=== PATIENT | female | born 1945 | race Caucasian/White ===

== ENCOUNTER 2016-10-31 16:19 | Emergency (ER) | payer OTHER ==
[~2016-10-31] VITALS: Ht 162.6 cm; Wt 127.0 kg
[~2016-10-31 16:19] MED LIST: ACT30 PO; ASPIR LOW81 MG PO; ATENOLOL50 MG PO; GABAPENTIN100 M2 PO; GLYBURIDE5 MG PO; JANUVIA100 M1 PO; KEPPRA500 MG PO; LASIX40 MG PO; NATURAL IRON65 MG PO; NORCO1 TA2 PO; POTASSIUM CHLO20 ME1 PO; TEKTURNA300 M1 PO; VALSARTAN AND H1 TA3 PO; ZANTAC 150150 MG PO; ZETIA10 M1 PO
[2016-10-31 18:30] VITALS: BP 171/66
== END 2016-10-31 18:30 | disposition home or self-care (01) ==
LOC: ED 16:19
DX: S09.90XA Unspecified injury of head, initial encounter (principal); E11.9 Type 2 diabetes mellitus without complications; R42 Dizziness and giddiness; I10 Essential (primary) hypertension; X58.XXXA Exposure to other specified factors, initial encounter; Y93.89 Activity, other specified; Y92.89 Other specified places as the place of occurrence of the external cause; Y99.8 Other external cause status

== ENCOUNTER 2017-01-29 12:03 | Inpatient (IN) | payer OTHER, BC ==
[~2017-01-29] VITALS: Ht 162.6 cm; Wt 109.0 kg
--- NOTE | 2017-01-29 12:05 | NUR ---
PT BIB [facility] FOR SEZIURE. PER EMS; PT WAS WALKING IN THE HALLWAY OF HER HOME WHEN SHE FELL WHICH WAS CAUSED BY A SEIZURE. PT COMPLAINS OF RIGHT SHOULDER AND RIGHT ANKLE PAIN DUE TO THE FALL. WHILE IN TRANSPORT MEDICS REPORT PATIENT HAD 3 SEIZURES IN WHICH THEY GAVE HER A TOTAL OF 7.5 MG OF VERSED. PT APPEARS TO BE POSTICTAL. RESPIRATIONS EVEN AND UNLABORED. NAD NOTED. DR. BABIN WAS AT BEDSIDE FOR MSE.
--- NOTE | 2017-01-29 12:22 | NUR ---
[facility]
[2017-01-29 12:30] LABS: BASOPHIL % 0.5 % (0-2); PLATELET COUNT 166 x10^3mcL (130-400); RED CELL DISTRIBUTION WIDTH 14.1 % (11.5-14.5)
[2017-01-29 12:42] LABS: ALBUMIN 3.2 g/dL (3.4-5.0); ALKALINE PHOSPHATASE 67 U/L (46-116); ALT/SGPT 18 U/L (14-59); AST/SGOT 18 U/L (15-37); BILIRUBIN TOTAL 0.3 mg/dL (0.20-1.00); CALCIUM 8.4 mg/dL (8.5-10.1); CARBON DIOXIDE 25.8 mmol/L (21-32); CHLORIDE SERUM 112 mmol/L (98-107); CREATININE SERUM 2.1 mg/dL (0.6-1.0); GLUCOSE SERUM 75 mg/dL (74-106); POTASSIUM SERUM 3.8 mmol/L (3.5-5.1); SODIUM SERUM 143 mmol/L (136-145); TOTAL PROTEIN, SERUM 6.5 g/dL (6.4-8.2)
[2017-01-29 12:43] LABS: CHOLESTEROL 112 mg/dL (<200)
--- NOTE | 2017-01-29 12:43 | NUR ---
RADIOLOGY AT BEDSIDE FOR PCXR
--- NOTE | 2017-01-29 12:57 | NUR ---
PT ASLEEP RESTING COMFORTABLY. RESPIRATION EVEN AND UNLABORED. NAD NOTED. FAMILY AT BEDSIDE.
[2017-01-29] MEDS ORDERED: KEPPRA1000 M1 PO (13:10)
[2017-01-29 13:11] LABS: AMPHETAMINE QUAL UR NONE DETECTED (NEG <=1000)
[2017-01-29] MEDS ORDERED: VIMPAT100 M1 PO (13:11)
[2017-01-29] MEDS ORDERED: LIPITOR80 MG PO (13:12)
[2017-01-29] MEDS ORDERED: NOR10 PO (13:12)
--- NOTE | 2017-01-29 13:29 | NUR ---
REPORT GIVEN TO AIDE JONES IN [facility] FOR CONTINUITY OF CARE. AWAITING ADMISSION ORDERS AND VERBAL OK FROM DR BABIN TO [facility]
--- NOTE | 2017-01-29 13:42 | NUR ---
VERBAL OK RECEIVED FROM DR BABIN TO MOVE PT. AWAITING ADMIT ORDER. WILL HAVE MT PAGE RESIDENT FOR ORDERS
--- NOTE | 2017-01-29 13:50 | NUR ---
AWAITING ADMIT ORDERS
--- NOTE | 2017-01-29 14:09 | NUR ---
AWAITING ADMIT ORDERS, CASE SPECIALIST DARLENE TEXTED FOR ORDERS
--- NOTE | 2017-01-29 14:30 | NUR ---
RECEIVED PT FROM ED [facility], CAME IN DUE TO S/P FALL AFTER SEIZURES AND HAD RIGHT SHOULDER AND RIGHT ANKLE PAIN. AAOX4. C/O MILD DIZZINESS. NO SEIZURE ACTIVITY NOTED AT THIS TIME. STATED THAT SHE HAS BLURRY VISION X1 WEEK. ABLE TO FOLLOW COMMANDS. NO SOB NOTED, ON 2LPM/NC, O2 KSC=850%. DENIES CHEST PAIN/PRESSURE, SINUS BRADYCARDIA ON THE MONITOR. DENIES ABDOMINAL DISCOMFORT. W/ INDONESIAN 16 DAVIS CATHETER DRAINING W/ YELLOW COLORED URINE. IV SITE PATENT ADN INTACT. PADDED SUDE RAILS UP. HOB ELEVATED AT 40 DEG. CALL LIGHT ON REACH. BED ALARM ON. ENDORSED
[2017-01-29 14:35] VITALS: BP 178/52
[2017-01-29 14:43] LABS: microscopic required? NO
[2017-01-29 14:52] LABS: urine erythrocyte NEGATIVE (NEGATIVE)
[2017-01-29 15:06] LABS: MAGNESIUM 2.2 mg/dL (1.8-2.4); PHOSPHOROUS 4.5 mg/dL (2.5-4.9)
--- NOTE | 2017-01-29 15:07 | NUR ---
RECEIVED REPORT FROM ROBERT BLISS. PT CAME IN S/P FALL AFTER HAVING SEIZURE AND HAD R SHOULDER AND R ANKLE PAIN. PT IS A/O X4, BREATHING EVEN AND UNLABORED,NO SOB OR RESP DISTRESS NOTED. ON 2L N/C. C/O FEELING VERY WEAK AND SLEEPY. NO SEIZURES ACTIVITY AT THIS TIME. PT STATES SHE HAD BLURRY VISION ONE WEEK AGO. SHE IS ABLE TO FOLLOW SIMPLE COMMANDS. DENIES ANY CHEST PAIN OR PRESSURE AND SINUS BRADYCARDIA ON MONITOR. ALSO DENIES ANY ABD DISCOMFORT OR PAIN. [place] 16 DAVIS CATHETER, DRAINING WITH YELLOW COLORED URINE. IS SITE PATENT AND INFUSING AT 150ML/HR NS. NO REDNESS OR SWELLING NOTED AT SITE. PADDED SUDE RAILS UP. HOB ELVATED AT 40 DEG. CALL LIGHT IN REACH. BED IN LOW POSITION BED ALARM ON.
[2017-01-29 15:18] LABS: T3 TOTAL 0.81 ng/mL
[2017-01-29 15:21] LABS: FREE T4 1.05 ng/dL (0.76-1.46); FREE THYROXINE INDEX 2.5 ug/dL (1.4-4.5)
[2017-01-29] MEDS ORDERED: NEU300 PO (15:36)
[2017-01-29] MEDS ORDERED: NEVANAC3 ML OU (15:38)
[2017-01-29] MEDS ORDERED: COSOPT OCUMETER10 ML OU (15:39)
[2017-01-29] MEDS ORDERED: XALATAN2.5 ML OU (15:39)
[2017-01-29] MEDS ORDERED: ALPHAGAN P5 M1 OU (15:42)
--- NOTE | 2017-01-29 16:30 | NUR ---
PT ACCU CHECK 45. RECHECKED 39. MADE DOCTOR TIARA AWARE. GAVE PT ONE CUP OF ORANGE JUICE. IV PUSHED D50 PER PROTOCAL.
--- NOTE | 2017-01-29 16:45 | NUR ---
RECHECKED PT ACCU CHECK 15 MINUTES AFTER 111.
[2017-01-29 16:51] VITALS: BP 158/55
--- NOTE | 2017-01-29 19:00 | NUR ---
PT IS LAYING IN BED WATCHING TV. PT IS A/O X4.NEURO CHECKS DONE Q 4 HRS. BREATHING EVEN AND UNLABORED. TELE 4 NSR. PT DENIES ANY DISCOMFORT AT THIS TIME OR PAIN. DAVIS OUT PUT 1000ML, LIGHT YELLOW. IV TO THE LHAND INFUSING AT 50ML/HR. NO SEIZURE ACTIVITY ON MY SHIFT. WILL ENDORSE PT TO INCOMING NURSE.
--- NOTE | 2017-01-29 20:19 | NUR ---
PT RECEIVED FROM PREVIOUS SHIFT. PT A+OX4. TELE #4. NSR. HR 60. DENIES CP/PRESSURE AT THIS TIME. PULSES MODERATE BILAT. NO EDEMA NOTED. LUNG SOUNDS CTA BILAT. DENIES SOB ON ROOM AIR. BOWEL SOUNDS ACTIVE X4. GENERALIZED WEAKNESS. NON AMBULATORY. SKIN INTACT. MILD REDNESS OF RIGHT SIDE OF TONGUE. IV LFA. PATENT AND INTACT. BED IN LOWEST POSITION. CALL LIGHT WITHIN REACH. WILL CONTINUE TO MONITOR.
[2017-01-29 20:45] VITALS: BP 158/55
[2017-01-29 20:50] VITALS: BP 180/60
--- NOTE | 2017-01-29 21:09 | NUR ---
SPOKE WITH DR ABOUT BP 180/60. TO ORDER VALSARTAN SCHEDULED PM MED. WILL CONTINUE TO MONITOR
--- NOTE | 2017-01-29 22:00 | NUR ---
PT ALERT AND ORIENTED. HAS PERIODS OF CONFUSION. WORDS DO NOT MATCH SITUATION. ABLE TO REORIENT. WEAK FIELD LIABILITY GENERALIST BILAT. PUPILS BRISK REACTION 3MM PUPILS. FACE SYMMETRICAL. NO SLURRED SPEECH. COMPLAINS OF LEG WEAKNESS SINCE SEIZURE ACTIVITY. WILL CONTINUE TO MONITOR
--- NOTE | 2017-01-29 23:01 | NUR ---
IN TO SEE PATIENT. RESTING PEACEFULLY. WILL CONTINUE TO MONITOR.
--- NOTE | 2017-01-30 01:06 | NUR ---
IN TO SEE PATIENT. REPOSITIONED TO HER RIGHT SIDE. PT COMPLAINS OF EXTREME WEAKNESS IN HER LEGS BUT SAID "ITS NORMAL AFTER SHE EXPERIENCES A SEIZURE". BED IN LOWEST POSITION. CALL LIGHT WITHIN REACH. WILL CONTINUE TO MONITOR
--- NOTE | 2017-01-30 02:05 | NUR ---
IN TO SEE PATIENT. ALERT AND ORIENTED. FORGETFUL OF STAFF AND RECENT CONVERSATIONS. STILL ORIENTED TO PERSON, PLACE, TIME, SITUATION. ABLE TO EASILY REORIENT. PERIODS OF SPEECH THAT DOES NOT MATCH SITUATION. PUPILS EQUAL AND BRISK. 3MM. DEVELOPMENT PROFESSIONAL REMAIN WEAK. CONTINUED COMPLAINTS OF WEAKNESS IN EXTREMITIES. NO CHANGES IN FACIAL SYMMETRY OR PERIODS OF SLURRED SPEECH. WILL CONTINUE TO MONITOR
--- NOTE | 2017-01-30 03:32 | NUR ---
PT REMOVED IV FROM [facility]. MULTIPLE ATTEMPTS TO REINSERT. UNSUCCESSFUL. DR. BENAVIDEZ MADE AWARE. ATIVAN WASTED WITNESSED BY STEPHANIA JONES.
--- NOTE | 2017-01-30 03:42 | NUR ---
PT CONFUSED. WORDS DO NOT MATCH SITUATION. PLACED ON 3L NC. WILL CONTINUE TO MONITOR
--- NOTE | 2017-01-30 03:55 | NUR ---
PT REFUSING FURTHER IV INITIATIONS. AWARE.
[2017-01-30 06:02] VITALS: BP 151/47
[2017-01-30 07:09] LABS: TOTAL IRON BINDING CAPACITY 258 ug/dL (250-450)
[2017-01-30 07:16] LABS: IRON 34 ug/dL (50-170)
[2017-01-30 07:20] LABS: BASOPHIL % 0.6 % (0-2); PLATELET COUNT 164 x10^3mcL (130-400); RED BLOOD CELLS 2.92 M/mm3 (4.10-5.10); RED CELL DISTRIBUTION WIDTH 14.4 % (11.5-14.5)
[2017-01-30 07:21] LABS: CALCIUM 8.6 mg/dL (8.5-10.1); CARBON DIOXIDE 24.4 mmol/L (21-32); CHLORIDE SERUM 111 mmol/L (98-107); CREATININE SERUM 1.8 mg/dL (0.6-1.0); GLUCOSE SERUM 102 mg/dL (74-106); MAGNESIUM 2.3 mg/dL (1.8-2.4); PHOSPHOROUS 3.3 mg/dL (2.5-4.9); POTASSIUM SERUM 3.9 mmol/L (3.5-5.1); SODIUM SERUM 144 mmol/L (136-145)
[2017-01-30 08:31] VITALS: BP 157/43
--- NOTE | 2017-01-30 09:09 | NUR ---
PT ON BED, AWAKE, ALERT, AND ORIENTED X3. PT IS EASILY FORGETFUL. HAS NO COMPLAINT OF PAIN, SOB, OR DIZZINESS. RESPONDS WELL TO QUESTION AND ANSWER. CLEAR SCOTTY LUNG FIELD, ON 3LNC, SYMMETRICAL CHEST EXPANSION AND UNLABORED. ACTIVE BOWEL SOUNDS NOTED. NON DISTENDED ABDOMEN. EDEMA NOTED ON THE BUE AND BLE. REDNESS ON THE R SIDE OF THE TONGUE NOTED. SIDE RAILS UP, CALL LIGHT WTIHIN REACH, WILL CONTINUE TO MONITOR
--- NOTE | 2017-01-30 12:00 | NUR ---
PT'S ACUCHECK SHOWED 83. NO COVERAGE NEEDED
[2017-01-30 12:52] VITALS: BP 184/58
[2017-01-30 13:30] VITALS: BP 148/50
--- NOTE | 2017-01-30 14:16 | NUR ---
LEONID RN ESTABLISH IV SITE ON THE LEFT WRIST. IV SITE IS WRAPPED
--- NOTE | 2017-01-30 17:02 | NUR ---
PT'S ACCUCHECK SHOWED 131. NO COVERAGE NEEDED
[2017-01-30 17:55] VITALS: BP 133/41
--- NOTE | 2017-01-30 19:37 | NUR ---
SHIFT REASSESSMENT DONE.PATIENT ALERT,CONFUSED.REPORT FROM DAY SHIFT,BEEN REMOVING IV,NO IV LINE AT THIS TIME.O2 AT 3 LITERS.GEN WEAKNESS.WALKER,PHYSICAL THERAPY,PATIENT REFUSED.TELE 4 SR.SKIN INTACT,R SIDE OF TONQUE REDNESS PER REPORT.EDEMA BUE,REFUSED SCD.DAVIS INTACT AT THIS TIME.REMAINS CONFUSED.CALL LITE IN [facility].BED ALARM ON.
--- NOTE | 2017-01-30 21:27 | NUR ---
ALL MEDS GIVEN TONIGHT,SWALLOWS WELL.
--- NOTE | 2017-01-30 21:50 | NUR ---
TRYING TO START IV AT THIS TIME AGAIN.
[2017-01-30 21:51] VITALS: BP 156/50
--- NOTE | 2017-01-31 05:24 | NUR ---
PATIENT IV SITE SECURED STILL,ATB SCHEDULED GIVEN THIS AM,I AND O,DAVIS INTACT,GOOD OUTPUT.MAICO ENDORSE TO NEXT SHIFT.
[2017-01-31 06:13] LABS: BASOPHIL % 0.4 % (0-2); PLATELET COUNT 150 x10^3mcL (130-400); RED CELL DISTRIBUTION WIDTH 14.4 % (11.5-14.5)
[2017-01-31 06:20] VITALS: BP 146/41
[2017-01-31 06:36] LABS: CALCIUM 8.5 mg/dL (8.5-10.1); CARBON DIOXIDE 25.6 mmol/L (21-32); CHLORIDE SERUM 112 mmol/L (98-107); CREATININE SERUM 1.8 mg/dL (0.6-1.0); GLUCOSE SERUM 127 mg/dL (74-106); MAGNESIUM 2.2 mg/dL (1.8-2.4); PHOSPHOROUS 3.7 mg/dL (2.5-4.9); POTASSIUM SERUM 3.8 mmol/L (3.5-5.1); SODIUM SERUM 144 mmol/L (136-145)
[2017-01-31 07:14] LABS: TRANSFERRIN 199 mg/dL (200-370)
--- NOTE | 2017-01-31 09:00 | NUR ---
PT ON BED, AWAKE, ALERT, AND ORIENTED X1. PT IS EASILY FORGETFUL. HAS NO COMPLAINT OF PAIN, SOB, OR DIZZINESS. RESPONDS WELL TO QUESTION AND ANSWER. CLEAR SCOTTY LUNG FIELD, ON 3LNC, SYMMETRICAL CHEST EXPANSION AND UNLABORED. ACTIVE BOWEL SOUNDS NOTED. NON DISTENDED ABDOMEN. EDEMA NOTED ON THE BUE AND BLE. REDNESS ON THE R SIDE OF THE TONGUE NOTED. SIDE RAILS UP, CALL LIGHT WTIHIN REACH, WILL CONTINUE TO MONITOR
[2017-01-31 09:14] VITALS: BP 149/44
--- NOTE | 2017-01-31 12:30 | NUR ---
PT'S ACCUCHECK SHOWED 157. PT REFUSED COVERAGE
--- NOTE | 2017-01-31 15:09 | NUR ---
PT PULLED IV ACCESS. PT REFUSED TO HAVE A NEW SITE STARTED. DR. GODDARD
--- NOTE | 2017-01-31 17:40 | NUR ---
PT ON BED, AWAKE, ALERT, AND ORIENTED X2. PT'S ACCUCHECK SHOWED 141. NO COVERAGE NEEDED
[2017-01-31 18:05] VITALS: BP 166/66
--- NOTE | 2017-01-31 19:30 | NUR ---
PT IS A/O X3, WITH CONFUSION, LUNG SOUND CLEAR BILATERAL, NO COUGH, NO SOB, PT IS ON TELE 4, NSR, DENY ANY CHEST PAIN OR DISCOMFORT, BOWEL SOUND PRESENT ALL 4 QUADRANTS, NO DISTENTION, NO TENDER. PEDAL PULSE PRESENT BOTH FEET, +1 EDEMA BOTH FOOT, NO IV ACCESS AT THIS MOMENT ACCORDING THE MORNING SHIFT RN, UNABLE TO INSERT THE IV , MORNING MADE AWARE, ALL ADLS ASSIST, ALL NEED MET, CALL LIGHT IN REACH, WILL CONTINUE TO MONITOR.
[2017-01-31 21:00] VITALS: BP 150/73
--- NOTE | 2017-01-31 22:33 | NUR ---
INSERT THE IV AT RIGHT AC, FLUSHED WELL, WILL CONTINUE TO MONITOR THE PT.
[2017-02-01 00:39] VITALS: BP 136/61
--- NOTE | 2017-02-01 05:05 | NUR ---
PT IS SLEEPING, AWAKE BY TOUCH, DENY ANY RESPIRATORY DISTRESS, DENY ANY PAIN OR DISCOMFORT, IV AT RIGHT AC, NO LEAKING, NO INFILTRATION. ALL ADLS ASSIST, ALL NEED MET, CALL LIGHT IN REACH, WILL CONTINUE TO MONITOR.
[2017-02-01 05:22] VITALS: BP 145/57
[2017-02-01 06:35] LABS: BASOPHIL % 0.7 % (0-2); PLATELET COUNT 147 x10^3mcL (130-400); RED CELL DISTRIBUTION WIDTH 14.5 % (11.5-14.5)
[2017-02-01 06:37] LABS: CALCIUM 8.5 mg/dL (8.5-10.1); CARBON DIOXIDE 23.3 mmol/L (21-32); CHLORIDE SERUM 114 mmol/L (98-107); CREATININE SERUM 1.8 mg/dL (0.6-1.0); GLUCOSE SERUM 131 mg/dL (74-106); MAGNESIUM 2.3 mg/dL (1.8-2.4); PHOSPHOROUS 4.2 mg/dL (2.5-4.9); POTASSIUM SERUM 4.1 mmol/L (3.5-5.1); SODIUM SERUM 146 mmol/L (136-145)
[2017-02-01 07:30] VITALS: BP 139/47
--- NOTE | 2017-02-01 07:41 | NUR ---
RECEIVED PT LAYING IN BED ASLEEP. NO APPARENT SIGNS OF ACUTE DISTRESS NOTED AT THIS TIME. RESPIRATIONS EVEN AND UNLABORED. PADDED RAILS ALONG SIDE OF BED FOR SAFETY. IV TO RAC SALINE LOCKED BUT APPEARS PATENT. DAVIS HANGING BELOW BLADDER LINE. CALL LIGHT WITHIN REACH. BED IN LOWEST POSITION. WILL CONTINUE TO MONITOR
--- NOTE | 2017-02-01 08:30 | NUR ---
AM ROUNDS DONE. PER DR. HERNANDEZ, PT WILL BE DISCHARGED TO [facility] TODAY. PT ALERT AND ORIENTED AND AGREES WITH PLAN OF CARE. CALL LIGHT WITHIN REACH. WILL CONTINUE TO MONITOR
--- NOTE | 2017-02-01 11:37 | NUR ---
PT RESTING IN BED GODSON AT BEDSIDE. DENIES PAIN OR DISCOMFORT AT THIS TIME. NO APPARENT SIGNS OF ACUTE DISTRESS NOTED. CALL LIGHT WITHIN REACH. BED IN LOWEST POSITION. ENCOURAGED TO CALL FOR ASSISTANCE WHEN NEEDED. WILL CONTINUE TO MONITOR
[2017-02-01] MEDS ORDERED: LEVAQUIN750 MG PO (11:45)
[2017-02-01] MEDS ORDERED: CLINDAMYCIN HY150 M1 PO (11:46)
[2017-02-01 11:47] VITALS: Ht 162.6 cm; Wt 109.0 kg
[2017-02-01] MEDS ORDERED: LAC PO (11:47)
--- NOTE | 2017-02-01 15:55 | NUR ---
PT IS RESTING IN BED SOCIALIZING WITH STAFF. PLEASANT AND COOPERATIVE. DENIES PAIN AT THIS TIME. COMPLIANT WITH TREATMENT. IV INFUSING WELL. BED IN LOWEST POSITION. CALL LIGHT WITHIN REACH. WILL CONTINUE TO MONITOR
--- NOTE | 2017-02-01 16:19 | NUR ---
PHYSICAL THERAPY DAILY NOTES CO-SIGN All documentation done by the Belt Machine Operator for 02/01/17 has been reviewed. I agree with the documentation. Reviewed/Co-Signed by: Kia Duron PT Documentation Done by:LUCILLE VEGA GUEST EXPERIENCE SPECIALIST POC REVIEWED W/GUEST EXPERIENCE SPECIALIST, WILL BENEFIT W/ P.T. AFTER ACUTE STAY.
--- NOTE | 2017-02-01 18:04 | NUR ---
PT SIGNED TRANSFER CONSENT AND WENT OVER DISCHARGE INSTRUCTION AND PT TEACHING. PT WAS TRANSFERRED VIA [facility] WITH DAVIS CATH AND 22G IV TO [facility], [place]. PT DENIES PAIN. NO APPARENT SIGNS OF ACUTE DISTRESS NOTED. ALL BELONGINGS AND MEDICATIONS, INCLUDING A BOTTLE OF VIMPAT WITH 34 TABS REMAINING VERIFIED BY A SECOND NURSE (ROBERT BLISS) [facility].
== END 2017-02-01 18:04 | DRG 100 ==
LOC: ED 12:03 → DU 12:43
PROVIDERS: Emergency Medicine; ADMIT Family Medicine
DX: G40.901 Epilepsy, unspecified, not intractable, with status epilepticus (principal); N17.0 Acute kidney failure with tubular necrosis; E44.0 Moderate protein-calorie malnutrition; D68.69 Other thrombophilia; Z68.41 Body mass index [BMI] 40.0-44.9, adult; I42.2 Other hypertrophic cardiomyopathy; E11.65 Type 2 diabetes mellitus with hyperglycemia; E11.51 Type 2 diabetes mellitus with diabetic peripheral angiopathy without gangrene; E11.42 Type 2 diabetes mellitus with diabetic polyneuropathy; H40.9 Unspecified glaucoma; I10 Essential (primary) hypertension; E66.01 Morbid (severe) obesity due to excess calories; E83.51 Hypocalcemia; D64.9 Anemia, unspecified; I65.22 Occlusion and stenosis of left carotid artery; I35.1 Nonrheumatic aortic (valve) insufficiency; I34.0 Nonrheumatic mitral (valve) insufficiency; I36.1 Nonrheumatic tricuspid (valve) insufficiency; I25.2 Old myocardial infarction; Z79.84 Long term (current) use of oral hypoglycemic drugs
CPT/HCPCS: 82962; 83880; 84439; 94150; 97110-GP; 97116-GP; 97530-GP; G0480; J1953; J2060; J2543; J3490; J7030; Q0092